=== PATIENT | female | born 1985 | race Caucasian/White ===

== ENCOUNTER 2020-11-07 09:51 | Outpatient (CLI) | payer OTHER, SELFPAY ==
--- NOTE | ~2020-11-07 | XR_ITS ---
EXAMINATION:XR cervical spine 4-5V DATE: 11/07/2020 10:12 INDICATION: Radiculopathy TECHNIQUE: AP, lateral, lateral swimmers and odontoid views of the cervical spine are provided. COMPARISON: None FINDINGS: Alignment is normal. There is straightening of the cervical spine which can be positional o r due to muscular spasm. The odontoid is intact. No fracture is identified. Vertebral body heights an d disk spaces are normal. Prevertebral soft tissues are normal. IMPRESSION: 1. No acute osseous abnormality. Reviewed, dictated and finalized at location B.
== END 2020-11-07 09:52 | disposition home or self-care (01) ==
PROVIDERS: PCP Physician Assistant; Visit Provider Physician Assistant
DX: M54.12 Radiculopathy, cervical region (principal)
CPT/HCPCS: 72050

== ENCOUNTER 2021-02-19 08:51 | Outpatient (CLI) | payer OTHER, SELFPAY ==
--- NOTE | 2021-02-19 11:15 | NEURO_ITS ---
Impression: # Complains of paresthesia of upper extremities. # Normal nerve conduction study including motor and sensory nerves. # No Carpal Tunnel Syndrome or ulnar neuropathy. # Normal needle/EMG exam. # Clinical correlation recommended. Nerve Conduction Studies Anti Sensory Summary Table Stim Site NR Peak (ms) P-T Amp (?V) Site1 Site2 Delta-P (ms) Dist (cm) Gaetano (m/s) Left Median Anti Sensory (2-3nd Digit) Wrist 2.8 97.7 Wrist 2-3nd Digit 2.8 14.0 50 Wrist 2.8 98.3 Wrist 2-3nd Digit 2.8 14.0 50 Right Median Anti Sensory (2-3nd Digit) Wrist 2.8 85.8 Wrist 2-3nd Digit 2.8 14.0 50 Wrist 2.8 91.8 Wrist 2-3nd Digit 2.8 14.0 50 Left Radial Anti Sensory (Base 1st Digit) Wrist 2.1 45.2 Wrist Base 1st Digit 2.1 0.0 Right Radial Anti Sensory (Base 1st Digit) Wrist 2.0 45.0 Wrist Base 1st Digit 2.0 0.0 Left Ulnar Anti Sensory (5th Digit) Wrist 2.6 82.9 Wrist 5th Digit 2.6 14.0 54 Right Ulnar Anti Sensory (5th Digit) Wrist 2.5 88.6 Wrist 5th Digit 2.5 14.0 56 Motor Summary Table Stim Site NR Onset (ms) O-P Amp (mV) Site1 Site2 Delta-0 (ms) Dist (cm) Gaetano (m/s) Left Median Motor (Abd Poll Brev) Wrist 3.0 8.5 Elbow Wrist 4.3 25.0 58 Elbow 7.3 3.7 Right Median Motor (Abd Poll Brev) Wrist 3.2 4.2 Elbow Wrist 3.9 24.0 62 Elbow 7.1 5.6 Left Ulnar Motor (Abd Dig Minimi) Wrist 2.4 8.2 A Elbow Wrist 4.2 25.0 60 A Elbow 6.6 5.5 Right Ulnar Motor (Abd Dig Minimi) Wrist 2.4 11.2 A Elbow Wrist 4.4 26.0 59 A Elbow 6.8 8.9 F Wave Studies NR F-Lat (ms) L-R F-Lat (ms) Left Median (Mrkrs) (Abd Poll Brev) 25.11 0.50 Right Median (Mrkrs) (Abd Poll Brev) 24.61 0.50 Left Ulnar (Mrkrs) (Abd Dig Min) 25.08 0.00 Right Ulnar (Mrkrs) (Abd Dig Min) 25.08 0.00 EMG Side Muscle Nerve Root Ins Act Fibs Amp Dur Recrt Comment Right 1stDorInt Ulnar C8-T1 Nml Nml Nml Nml Nml Right Ext Indicis Radial (Post Int) C7-8 Nml Nml Nml Nml Nml Right Ext Digitorum Radial (Post Int) C7-8 Nml Nml Nml Nml Nml Right BrachioRad Radial C5-6 Nml Nml Nml Nml Nml Right PronatorTeres Median C6-7 Nml Nml Nml Nml Nml Right Abd Poll Brev Median C8-T1 Nml Nml Nml Nml Nml Left 1stDorInt Ulnar C8-T1 Nml Nml Nml Nml Nml Left Ext Indicis Radial (Post Int) C7-8 Nml Nml Nml Nml Nml Left Ext Digitorum Radial (Post Int) C7-8 Nml Nml Nml Nml Nml Left BrachioRad Radial C5-6 Nml Nml Nml Nml Nml Left PronatorTeres Median C6-7 Nml Nml Nml Nml Nml Left Abd Poll Brev Median C8-T1 Nml Nml Nml Nml Nml MTDD
== END 2021-02-19 08:52 | disposition home or self-care (01) ==
PROVIDERS: PCP Physician Assistant; Visit Provider Physician Assistant
DX: R20.2 Paresthesia of skin (principal)
CPT/HCPCS: 95886; 95911

== ENCOUNTER 2024-07-13 09:22 | Outpatient (CLI) | payer OTHER, SELFPAY ==
--- NOTE | ~2024-07-13 | MM_ITS ---
EXAMINATION: MM screening marilou BI w nam HISTORY: Screening TECHNIQUE: Craniocaudal and mediolateral oblique 3-D tomosynthesis images were obtained and synthetic 2-D images were generated. CAD analysis was submitted and interpreted. COMPARISON: No prior mammogram is available for comparison at this institution. BREAST PARENCHYMAL COMPOSITION: Not dense: There are scattered areas of fibroglandular density. FINDINGS: There is no evidence of suspicious mass, calcification, or architectural distortion to sugg est malignancy in either breast. There has been no suspicious interval change. IMPRESSION: 1. No mammographic evidence of malignancy. 2. Recommend routine screening mammography in one year. BI-RADS Category 1: Negative Reviewed, dictated and finalized at location B. [facility]
== END 2024-07-13 09:23 | disposition home or self-care (01) ==
LOC: ANHIMG 09:27
PROVIDERS: PCP Physician Assistant
DX: Z12.31 Encounter for screening mammogram for malignant neoplasm of breast (principal)
CPT/HCPCS: 77063; 77067